=== PATIENT | female | born 1975 | race Two or more races ===

== ENCOUNTER 2021-08-26 10:33 | Emergency (ER) | payer OTHER ==
[~2021-08-26] VITALS: Ht 172.7 cm; Wt 64.9 kg
== END 2021-08-26 13:01 | disposition home or self-care (01) ==
LOC: ER 10:33
DX: S93.401A Sprain of unspecified ligament of right ankle, initial encounter (principal); X58.XXXA Exposure to other specified factors, initial encounter; Y93.79 Activity, other specified sports and athletics; Y92.39 Other specified sports and athletic area as the place of occurrence of the external cause; Y99.9 Unspecified external cause status

== ENCOUNTER 2022-05-05 10:52 | Outpatient (CLI) | payer OTHER | END 2022-05-05 10:53 | disposition home or self-care (01) | LOC: RAD 10:52 | DX: M99.01 Segmental and somatic dysfunction of cervical region (principal); M99.02 Segmental and somatic dysfunction of thoracic region; M99.03 Segmental and somatic dysfunction of lumbar region; M99.04 Segmental and somatic dysfunction of sacral region; M99.05 Segmental and somatic dysfunction of pelvic region ==